=== PATIENT | female | born 1970 | race Caucasian/White ===

== ENCOUNTER 2019-05-13 11:47 | Emergency (ER) | payer OTHER, SELFPAY ==
--- NOTE | 2019-05-13 12:08 | ED.GENADULT ---
HPI - General Adult General Chief complaint: Upper Respiratory Infection Stated complaint: Left ear pain/cough/mucus/runny nose Time Seen by Provider: 05/13/19 12:16 Source: patient Mode of arrival: ambulatory Limitations: no limitations History of Present Illness HPI narrative: 48-year-old female patient presents to the [facility] with complaints of left ear pain, sore throat, slight cough with some mucus production for the past 4 to 5 days. Patient denies any fever that she is aware of. Denies any chest pain, shortness of breath, abdominal pain, nausea, vomiting or diarrhea. Patient states she has been taking some [id number] Mucinex for her symptoms. Patient states that she is an active smoker. Related Data Home Medications Medication Instructions Recorded Confirmed albuterol sulfate 2 puff INHALATION Q4-6H PRN 05/13/19 05/13/19 duloxetine mg PO 05/13/19 escitalopram oxalate mg 05/13/19 ibuprofen 05/13/19 sumatriptan succinate 50 mg PO PRN 05/13/19 Allergies Allergy/AdvReac Type Severity Reaction Status Date / Time No Known Allergies Allergy Mild Verified 05/13/19 11:58 Review of Systems Review of Systems: Narrative: CONSTITUTIONAL: Denies fever, chills, or sweats. EYES: Denies visual changes, redness, or discharge. ENT: Positive rhinorrhea, congestion, sore throat, and left otalgia. CARDIOVASCULAR: Denies chest pain, palpitations, or edema. RESPIRATORY: Denies cough or dyspnea. GASTROINTESTINAL: Denies abdominal pain, nausea, vomiting, or diarrhea. GENITOURINARY: Denies dysuria or hematuria. SKIN: Denies rash or itching. MUSCULOSKELETAL: Denies back pain, joint pain, or myalgia. NEUROLOGIC: Denies headache, numbness, or weakness. PSYCHIATRIC: Denies anxiety or depression. PMFSH Social History Social History Gender identity (if verbalized by the patient): Female Comments At the time of my signature I agree with nursing past medical history, surgical, social, and family history. There is no relevant family history pertinent to the presenting complaint. Exam Narrative: Exam Narrative: GENERAL: Well-appearing, well-nourished, and in no acute distress. HEAD: Normocephalic, atraumatic. No tenderness noted to frontal maxillary sinuses on palpation EYES: PERRLA and EOMI. ENT: Nares with erythema and edema noted bilaterally, patent, no rhinorrhea or epistaxis. Mucous membranes moist. Posterior pharynx with 2+ tonsil enlargement and white exudates noted on the left tonsil. Bilateral TMs are clear no erythema or foreign bodies to the canal. There is a little bit of fluid noted behind bilateral TMs on exam. NECK: Supple. No lymphadenopathy CHEST: Clear to auscultation. No respiratory distress. HEART: Regular rate and rhythm. No murmur heard. Normal peripheral pulses. ABDOMEN: Soft, nontender, nondistended, normal active bowel sounds. EXTREMITIES: Normal range of motion. No edema. SKIN: Warm, dry, no rash. NEURO: No focal deficits. Alert and oriented x3. Course Reevaluation(s) Reevaluation #1: Discussed with patient that she is negative today for strep. Discussed with her that this most likely is viral and will take some time to run its course. Discussed with patient she should do warm salt water gargles, hot tea and honey, Tylenol ibuprofen for her symptoms and definitely needs to stay away from public areas and other people while she has symptoms. Discussed with patient she would need to be symptom free for 72 hours before going out anywhere. Patient verbalized understanding denies any other questions or concerns at this time. Date: 05/13/19 Time: 12:43 Vital Signs Vital signs: Vital Signs Temperature 36.6 C 05/13/19 12:16 Pulse Rate 102 H 05/13/19 12:16 Respiratory Rate 18 05/13/19 12:16 Blood Pressure 165/97 H 05/13/19 12:16 Pulse Oximetry 98 05/13/19 12:16 Temperature 36.6 C 05/13/19 12:16 Pulse Rate 102 H 05/13/19 1
[2019-05-13 12:16] VITALS: BP 165/97; PULSE 102; RESP 18; TEMP 36.6; O2SAT 98
== END 2019-05-13 12:45 | disposition home or self-care (01) ==
PROVIDERS: Emergency Provider Nurse Practitioner Family; PCP Nurse Practitioner Family
DX: J03.90 Acute tonsillitis, unspecified (principal); J06.9 Acute upper respiratory infection, unspecified; R05 Cough; I10 Essential (primary) hypertension; J45.909 Unspecified asthma, uncomplicated; M19.90 Unspecified osteoarthritis, unspecified site; M79.7 Fibromyalgia; F41.9 Anxiety disorder, unspecified; F32.9 Major depressive disorder, single episode, unspecified
CPT/HCPCS: 87081; 87880; 99203; G0463

== ENCOUNTER 2019-05-13 11:47 | Emergency (ER) | payer OTHER, SELFPAY ==
--- NOTE | 2019-05-13 12:18 | PC.NURSE ---
On tracker twice
== END 2019-05-13 12:22 | disposition left against medical advice (07) ==
PROVIDERS: Emergency Provider Nurse Practitioner Family; PCP Nurse Practitioner Family
DX: Z53.21 Procedure and treatment not carried out due to patient leaving prior to being seen by health care provider (principal)
CPT/HCPCS: 99199